=== PATIENT | male | born 1975 | race Caucasian/White ===

== ENCOUNTER → 2021-06-17 | Outpatient (CLI) | payer BC, OTHER ==
[~2021-06-17] MED LIST: ACID REDUCER200 MG PO; ACYCLOVIR 800800 MG PO; AMITRIPTYLINE H10 M1 PO; CIPROFLOXACIN500 M1 PO; DEXILANT30 MG PO; DICLOFENAC SOD50 M1 PO; EFFEXOR XR75 MG PO; GABAPENTIN PO; LORTAB 5 MG/5001 TA1; MELATONIN5 M1 PO; PROTONIX40 M2 PO
== END ==
LOC: SJCVCIMAG 12:37
PROVIDERS: ATTEND Internal Medicine Cardiovascular Disease
DX: R07.89 Other chest pain (principal); R42 Dizziness and giddiness

== ENCOUNTER 2021-06-20 15:12 | Emergency (ER) | payer BC, OTHER ==
[~2021-06-20] VITALS: Ht 182.9 cm; Wt 95.3 kg
[2021-06-20 17:29] LABS: BASOPHILS 0.5 % (0.0-2.0); EOSINOPHILS 3.2 % (0.0-3.0); HEMATOCRIT 45.4 % (42.0-52.0); HEMOGLOBIN 14.8 gm/dL (14.0-18.0); MCH 28.9 pg (26.0-34.0); MCHC 32.6 g/dL (28.0-37.0); MCV 88.8 fL (80.0-100.0); MONOCYTES 9.6 % (1.0-8.0); PLATELET COUNT 247 thou/uL (150-400); POLYS 57.7 % (36.0-66.0); RBC 5.11 mil/uL (4.50-6.00); RDW 12.6 % (10.5-14.5); WBC 6.9 thou/uL (4.0-11.0)
[2021-06-20 17:39] LABS: ANION GAP 9 mmol/L (7-16); BUN 11 mg/dL (7-18); CALCIUM 8.1 mg/dL (8.5-10.1); CHLORIDE 109 mmol/L (98-107); CO2 24 mmol/L (21-32); CREATININE 0.9 mg/dL (0.7-1.3); GLUCOSE 81 mg/dL (74-106); POTASSIUM 3.9 mmol/L (3.5-5.1); SODIUM 142 mmol/L (136-145)
[2021-06-20 17:52] LABS: ALBUMIN 3.3 g/dL (3.4-5.0); LIPASE 90 U/L (73-393); SGOT 33 U/L (15-37); SGPT 71 U/L (16-63); TOTAL BILIRUBIN 0.4 mg/dL (0.2-1.0)
[2021-06-20 19:31] VITALS: BP 119/87
--- NOTE | 2021-06-21 07:30 | EKG ---
[place] [address] [facility] [place] [address] ELECTROCARDIOGRAM REPORT Name: DENA VANG Room #: DEP Aida#: [id number] Admission: 06/20/21 Attend Phys: Discharge: 06/20/21 Date of : 73 Report #: [id number] [facility] ED Test Date: 2021-06-20 Test Time: 15:20:02 Pat Name: DENA VANG Department: Room: Gender: M Regional Director: : 1975 Requested By: Syl Ma Order Number: [id number] MD: Brandon Shaw Measurements Intervals Mobile Rate: 77 P: -17 NC: 194 QRS: 4 QRSD: 85 T: 12 QT: 387 QTc: 438 Interpretive Statements Sinus rhythm No previous ECG available for comparison Electronically Signed On 06-21-2021 7:30:04 [employer] by Brandon Shaw [email or web address] <ELECTRONICALLY SIGNED> By: Brandon Shaw MD, [facility] 06/21/21 0730 1520 1520 Brandon Shaw MD, FACC /EPI
== END 2021-06-20 19:32 | disposition home or self-care (01) ==
LOC: ER 15:12
PROVIDERS: Emergency Medicine
DX: K29.70 Gastritis, unspecified, without bleeding (principal); Z20.822 Contact with and (suspected) exposure to COVID-19; K21.9 Gastro-esophageal reflux disease without esophagitis; Z90.89 Acquired absence of other organs; Z79.899 Other long term (current) drug therapy